=== PATIENT | male | born 1995 | race Caucasian/White ===

== ENCOUNTER 2016-08-06 17:37 | Emergency (ER) | payer OTHER ==
[~2016-08-06] VITALS: Ht 175.3 cm; Wt 180.0 kg
[~2016-08-06 17:37] MED LIST: ASPI-664 PO; AZIT250T6 PO; CETI-240 PO; DILT180C94 PO; IBUP800T25 PO; LORA10TA3 PO
[2016-08-06 17:41] VITALS: Ht 175.3 cm; Wt 180.0 kg
--- NOTE | 2016-08-06 18:27 | RADRPT ---
PROCEDURE: XR Chest. CLINICAL INDICATION: Cough. TECHNIQUE: Single frontal view of the chest was obtained COMPARISON: 01/30/2016. FINDINGS: Cardiomegaly. Hypoinflated lungs, the patient body habitus and portable technique accentuate pulmon shmuel vascular markings. There is no pleural effusion or pneumothorax. IMPRESSION: No acute disease. RPTAT: [facility] Physician Ochoa Date Time Electronically viewed and signed by Leora Guy Physician on 08/06/2016 18:26 RS/
[2016-08-06] MEDS ORDERED: MED4DP PO (18:32)
[2016-08-06 18:42] VITALS: BP 171/85; PULSE 100; RESP 20; TEMP 98.2
--- NOTE | 2016-08-06 18:52 | ERD ---
ER Documentation Chief Complaint Date/Time DATE: 08/06/16 TIME: 18:50 Chief Complaint cough x 1 week HPI This is a 20-year-old male presents to the ER with a cough for the last week. Patient has a past medical she did not Hodgkin's lymphoma and hypertension. Patient states that cough is productive cough. He is complaining of chest pain and shortness of breath. Patient states he's had fevers. He went to an urgent care and Tuesday and was given azithromycin, any alert, cough medicine however cough has not gone away. He shouldn't has not traveled anywhere. There are no sick contacts at home. ROS 12 point review of systems was done, all negative except per HPI. Medications Home Meds Active Scripts Methylprednisolone* (Medrol* DOSE PACK) 4 Mg/Dose-Pack Tab.ds.pk, 4 MG PO . DIRECTED for 6 Days, PACKET Prov:RUTHIE MUNOZ Kunal 08/06/16 Reported Medications Azithromycin* (Azithromycin*) 250 Mg Tablet, 250 MG PO DAILY for 5 Days, #6 TAB 01/30/16 Loratadine* (Loratadine*) 10 Mg Tablet, 10 MG PO DAILY, #30 TAB 01/30/16 Cetirizine Hcl* (Cetirizine Hcl*) 10 Mg Tablet, 10 MG PO DAILY, #30 TAB 01/30/16 Ibuprofen* (Ibuprofen*) 800 Mg Tab, 800 MG PO BID Y for PAIN, TAB 01/30/16 Aspirin* (Aspirin* EC) 81 Mg Tablet.dr, 81 MG PO DAILY, TAB 01/30/16 Diltiazem Hcl* (Diltiazem XT) 180 Mg Capsule.er, 180 MG PO DAILY, #30 CAP 01/30/16 Allergies Allergies: Coded Allergies: amlodipine (Verified Adverse Reaction, Unknown, dry, itchy throat, 01/30/16 ) PMhx/Soc History of Surgery: Yes (port placed and removed as kid for hodgkins 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.o., TONSILLECTOMY) Anesthesia Reaction: No Hx Neurological Disorder: No Hx Respiratory Disorders: Yes (BRONCHITIS) Hx Cardiac Disorders: Yes (htn) Hx Psychiatric Problems: No Hx Miscellaneous Medical Probl: Yes (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 NECK: Cervical spine is non tender with no step off. Supple, no nuchal rigidity HEENT: Atraumatic. Pupils equal, round and reactive to light. Extraocular muscles are grossly intact. Conjunctivae pink, no discharge. Bilateral tympanic membranes are clear with no evidence of erythema, effusion or dulling of the light reflex. Tonsilar erythema with no exudates or uvular deviation. Clear rhinorrhea. RESPIRATORY: Clear to auscultation bilaterally. There are no rales, wheezes or rhonchi. HEART: Regular rate and rhythm. No murmurs, clicks, rubs or gallops. EXTREMITIES: No clubbing or cyanosis. Full range of motion. Grossly neurovascularly intact. NEUROLOGIC: Alert and oriented. Cranial nerves II through XII are intact. SKIN: There is no rash. The skin is warm and dry. Procedures/MDM EKG was taken 105bpm no ST elevation no t wave inversion. Differential diagnosis includes but is not limited to; Viral URI, allergic rhinitis, bronchitis, pertussis,pneumonia. This is likely viral in etiology. Patient was given a Z-Chente, completed Z-Chente. Z-Chente probably didn't work because this is not a bacterial infection. She will be sent home with a medrol dose pack. Clinical suspicion for pneumonia is low as patient appears well, is not hypoxic or in any respiratory distress. Additionally, patients physical examination is benign. Plan was discussed with patient they understand and agree. Patient needs to follow up with PCP in 1-2 days or return to ER sooner if symptoms worsen. Departure Diagnosis: Primary Impression: Upper respiratory infection Condition: Stable Patient Instructions: Preventing Common Respiratory Infections Additional Instructions: Call your primary care doctor TOMORROW for an appointment during the next 1-2 days.See the doctor sooner or return here if your condition worsens before your appointment time. RUTHIE MUNOZ Aug 06, 2016 18:52
== END 2016-08-06 18:42 | disposition home or self-care (01) ==
LOC: FTE 17:37
DX: J06.9 Acute upper respiratory infection, unspecified (principal); I10 Essential (primary) hypertension; Z79.82 Long term (current) use of aspirin
CPT/HCPCS: 71010; 93005; Z7502

== ENCOUNTER 2017-05-19 19:41 | Emergency (ER) | END 2017-05-19 21:48 | disposition left against medical advice (07) ==

== ENCOUNTER 2017-06-10 08:35 | Emergency (ER) | END 2017-06-10 15:19 | disposition home or self-care (01) ==